=== PATIENT | male | born 1995 | race Caucasian/White ===

== ENCOUNTER → 2017-12-19 09:42 | Outpatient (REF) | payer SELFPAY | LOC: OM 09:42 | PROVIDERS: Visit Provider Nurse Practitioner Family | DX: Z02.83 Encounter for blood-alcohol and blood-drug test (principal) ==

== ENCOUNTER → 2017-12-19 09:43 | Outpatient (REF) | payer SELFPAY | LOC: OM 09:43 | PROVIDERS: Visit Provider Nurse Practitioner Family | DX: Z02.1 Encounter for pre-employment examination (principal) ==